=== PATIENT | male | born 1950 | race Caucasian/White ===

== ENCOUNTER 2016-10-28 16:16 | Emergency (ER) | payer OTHER ==
--- NOTE | 2016-10-28 16:21 | UCPHY ---
H & P Patient Type: Established HPI/ROS: HPI CHIEF COMPLAINT: Right eye pain, right eye redness HISTORY OF PRESENT ILLNESS: This patient very pleasant 66-year-old male, presents emergency room with 2 days of right eye redness specifically the lower or part of his conjunctiva he thinks he may have scratched his eye. Denies direct trauma. Denies loss of vision, blurry vision, or significant eye pain. No history of glaucoma. Denies any drainage or crusting. Denies fever, denies leg swelling. States no change in vision. He does not wear contacts. He does use corrective lenses for nearsighted. Past Medical History: ?04Hypertension Past Surgical History: no recent surgical history Social History: Denies daily use of drugs alcohol tobacco products Family History: Noncontributory ROS REVIEW OF SYSTEMS: A comprehensive 10 point review of systems is otherwise negative aside from elements mentioned in the history of present illness. Exam Constitutional triage nursing summary reviewed, vital signs reviewed, awake/ alert. Eyes left eye normal, right eye: Conjunctival injection, anterior chamber normal, globe soft, no anterior flare, posterior eye exam without dilatation is unremarkable, normal light reflex, pupil equal round react to light, extra movements intact, lids everted no foreign body seen, visual acuity checked in normal, no fluorescein uptake. HENT normal inspection, atraumatic, moist mucus membranes, no epistaxis, neck supple/ no meningismus, no raccoon eyes. Respiratory clear to auscultation bilaterally, normal breath sounds, no respiratory distress, no wheezing. Cardiovascular rate normal, regular rhythm, no murmur, no edema, distal pulses normal. Gastrointestinal soft, non-tender, no rebound, no guarding, normal bowel sounds, no distension, no pulsatile mass. Genitourinary no CVA tenderness. Musculoskeletal no midline vertebral tenderness, full range of motion, no calf swelling, no tenderness of extremities, no meningismus, good pulses, neurovascularly intact. Skin pink, warm, & dry, no rash, skin atraumatic. Neurologic awake, alert and oriented x 3, AAOx3, moves all 4 extremities equally, motor intact, sensory intact, CN II-XII intact, normal cerebellar, normal vision, normal speech. Psychiatric normal mood/affect. Heme/Lymph/Immune no lymphadenopathy. Differential Diagnosis: Includes but is not limited to in a particular order conjunctivitis, viral conjunctivitis, bacterial conjunctivitis, conjunctival tear, corneal abrasion, acute angle glaucoma Medical Decision Making: plan for this patient he will have proparacaine drops placed in his eye for comfort, will then need eye exam, will apply fluorescein to the eye to make sure there is not a scratch. Rule out foreign body, lid eversion, visual acuity checked. Re-evaluation: 163: Re-examination at this time patient resting comfortably feels much better after proparacaine drops. No fluorescein uptake there appears to be a conjunctival small abrasion or tear inferior part of the right eye. No traumatic hyphema, no iritis. Patient comfortable going home with Cipro drops. Cool compresses. He understands to follow up with Optho tomorrow. 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 - Family History Significant Family History: No pertinent family hx - Social History Smoking Status: Never smoked Constitutional: Initial Vital Signs Temperature (C) 37.1 C 10/28/16 16:30 Heart Rate 84 10/28/16 16:30 Respiratory Rate 16 10/28/16 16:30 Blood Pressure 173/103 H 10/28/16 16:30 O2 Sat (%) 92 10/28/16 16:30 O2 Delivery Mode Room Air Allergies/Adverse Reactions: codeine [Codeine] Allergy (Unknown, Verified 10/28/16 16:34) Home Medications: Medication Instructions Recorded Diazepam [Valium] 5 mg PO Q6PRN PRN #10 tab 06/08/14 Departure - Departure Disposition: Home, Routine, Self-Care Clinical Impression: Conjunctivitis Qualifiers: Conjunctivitis type: acute Acute conjunctivitis type: unspecified Laterality: right Qualified Code(s): H10.31 - Unspecified acute conjunctivitis, right eye Condition: Good Instructions: Conjunctivitis (ED) Additional Instructions: 1. Use cool compresses on your eye. 2. return to the emergency room urgent care if you have any worsening symptoms questions or concerns 3. I do recommend he follow up with Ophthalmology call their 1st thing in the morning for an appointment. Referrals: Ambrocio Ojeda MD [Primary Care Provider] - As per Instructions Dami Mckeon [Medical Doctor] - As per Instructions - PQRS PQRS Measurement: 134: Depression screening and followup, PRIME MD-PHQ2 (12 years and older) Over the last 2 weeks, how often have you been bothered by any of the following problems? 1. Feeling down, depressed, or hopeless? 2. Little interest or pleasure in doing things? Patient answered no to both 1 and 2 130: Documentation of medications. Reviewed all patient medications, doses, route and frequency. 226: Do you smoke? No. 47: 65 and older: Advanced care planning. Patient designates surrogate decision maker as Spouse 51: 18 years old and older with diagnosis of COPD, spirometry performance. Patient has no history of COPD 52: 18 years old and older with COPD and symptoms of COPD or FEV1<60% predicted prescribed a B Agonist. Spirometry not performed; equipment not available.
[2016-10-28] MEDS ORDERED: PROPARACAINE 0.5% 15 ML OPHT DROP ONE (16:29)
[2016-10-28 16:35] VITALS: BP 173/103; PULSE 84; RESP 16; TEMP 98.8; O2SAT 92
== END 2016-10-28 16:55 | disposition home or self-care (01) ==
LOC: CED 16:16
DX: H10.31 Unspecified acute conjunctivitis, right eye (principal)
CPT/HCPCS: 99214-PO; G0463-PO

== ENCOUNTER 2017-09-16 13:56 | Inpatient (IN) | payer OTHER ==
--- NOTE | 2017-09-16 14:19 | EDPHY ---
HPI/HX/ROS/PE/MDM Narrative: CHIEF COMPLAINT: Vision disturbances HPI: This patient is a 66 y/o male with history of cerebellar stroke complaining of vision disturbances and anxiety. 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 Initially, he had difficulty walking, spinning vertigo, and visual disturbances. These symptoms resolved mostly within eight week, but he has continued to have occasional similar symptoms. These are exacerbated by hypertension. The patient has history of anxiety and hypertension and treats symptoms with Valium. He does not take any other medications. He has history of migraines with scotoma aura, but has not had these symptoms for years. Yesterday, he had three separate instances of noting a backwards C-shaped scotoma in his right field of vision. These symptoms began yesterday after he stood suddenly, striking his left lateral toe. He noted hypertension (165/104) as well and took Valium, which relieved his symptoms after two hours. Today, this remains in his right field of vision, but his symptoms have largely resolved. No diplopia. His symptoms do not change if he closes one eye. He has not noted any balance issues or other neurologic deficits. The patient spoke with his primary care physician, Dr. Ojeda, and also Dr. Chan, neurologist. Dr. Chan recommended presentation to the Emergency Department for MRI w/o contrast to further evaluate symptoms. REVIEW OF SYSTEMS: Aside from elements discussed in the HPI, a comprehensive 10-point review of systems was reviewed and is negative. PMH: Cerebellar stroke. Appendectomy, Splenectomy, Tonsillectomy SOCIAL HISTORY: Friend at bedside. PCP: Dr. Ojeda. Neurologist: Dr. Resendiz. PHYSICAL EXAM: General:Patient is alert, in no acute distress. ENT:Eyes are normal to inspection. ENT inspection normal. Neck: Normal inspection. Full range of motion. Respiratory:No respiratory distress. Breath sounds normal bilaterally. Cardiovascular: Regular rate and rhythm. Strong peripheral pulses. Normal cap refill. Abdomen:The abdomen is nontender to palpation. There are no peritoneal signs. There are normal bowel sounds. Back: Normal to inspection. No tenderness to palpation. Skin: Normal color. No rash. Warm and dry. Extremities: Normal appearance. Full range of motion. Neuro: Oriented x3. Normal motor function. Normal sensory function. no pronator drift. Normal [id number] bilaterally. ED Course: 66 y/o male presents with visual disturbances and anxiety. Patient is neurologically intact. Plan for MRI brain. 15:[address] Law, radiologist. MRI brain shows multiple small infarcts, largest in the left occiput. 15:17 Discussed results with patient. He states he first noted symptoms two days ago. The patient is not a candidate for TPA at this time as symptoms began two days ago so he is out of the therapeutic window for treatment. Plan to consult with neurology, hospitalist service. Plan for echocardiogram, additional laboratory studies. 15:[address] Chan, neurologist. Reviewed MRI images. Plan for CTA head and neck to r/o cardioembolic processes vs recurrent dissection. 15:[address] Woo, hospitalist. She accepts admission. 15:40 Dr. Chan recommends Plavix 75mg. Patient states he has a diagnosis of hereditary spherocytosis. He is s/p splenectomy. 16:04 Spoke with echocardiogram tech. No abnormalities. - Data Points Imaging Results: Imaging Impressions Brain MRI 09/16/17 14:22 Impression: 1. New small acute infarcts in the left occipital lobe, posteromedial left temporal lobe, and right cerebellum, the largest in the posterior left occipital lobe, measuring 10 mm. 2. Mild to moderate underlying white matter change that can be seen with small vessel ischemic change. 3. Sequela from an old infarct, with encephalization, in the right cerebellum. Results called and discussed with Ruy Raines M.D., on September 16, 2017 at 1520. This was also reviewed by Dr. Scott Guajardo who concurs. Chest X-Ray 09/16/17 15:22 Impression: Findings most consistent with airways disease are noted. Head CTA 09/16/17 15:25 Impression: Normal. Neck CTA 09/16/17 15:25 Impression: 1. Dominant left vertebral artery. 2. Otherwise, widely patent anterior and posterior circulation without dissection, atherosclerotic disease, plaque, stenosis, or aneurysm. Imaging: Discussed imaging studies w/ millwork estimator Radiologist Laboratory Results: Laboratory Results 09/16/17 15:30 09/16/17 15:30 09/16/17 09/16/17 09/16/17 15:30 15:30 15:30 WBC 13.24 10^3/uL H 10^3/uL (3.80-9.50) RBC 5.67 10^6/uL 10^6/uL (4.40-6.38) Hgb 18.7 g/dL H g/dL (13.7-17.5) Hct 50.5 % % (40.0-51.0) MCV 89.1 fL fL (81.5-99.8) MCH 33.0 pg pg (27.9-34.1) MCHC 37.0 g/dL H g/dL (32.4-36.7) RDW 12.5 % % (11.5-15.2) Plt Count 313 10^3/uL 10^3/uL (150-400) MPV 11.5 fL fL (8.7-11.7) Neut % (Auto) 41.9 % % (39.3-74.2) Lymph % (Auto) 44.0 % % (15.0-45.0) Chambers % (Auto) 10.9 % % (4.5-13.0) Eos % (Auto) 1.3 % % (0.6-7.6) Baso % (Auto) 1.4 % % (0.3-1.7) Nucleat RBC Rel Count 0.0 % % (0.0-0.2) Absolute Neuts (auto) 5.54 10^3/uL 10^3/uL (1.70-6.50) Absolute Lymphs (auto) 5.83 10^3/uL H 10^3/uL (1.00-3.00) Absolute Monos (auto) 1.44 10^3/uL H 10^3/uL (0.30-0.80) Absolute Eos (auto) 0.17 10^3/uL 10^3/uL (0.03-0.40) Absolute Basos (auto) 0.19 10^3/uL H 10^3/uL (0.02-0.10) Absolute Nucleated RBC 0.00 10^3/uL 10^3/uL (0-0.01) Immature Gran % 0.5 % % (0.0-1.1) Immature Gran # 0.07 10^3/uL 10^3/uL (0.00-0.10) PT 13.9 SEC SEC (12.0-15.0) INR 1.05 (0.83-1.16) APTT 24.6 SEC SEC (23.0-38.0) Sodium 141 mEq/L mEq/L (135-145) Potassium 4.2 mEq/L mEq/L (3.5-5.2) Chloride 106 mEq/L mEq/L (97-110) Carbon Dioxide 18 mEq/l L mEq/l (22-31) Anion Gap 17 mEq/L H mEq/L (8-16) BUN 8 mg/dL mg/dL (7-23) Creatinine 0.8 mg/dL mg/dL (0.7-1.3) Estimated GFR > 60 Glucose 84 mg/dL mg/dL (70-100) Calcium 10.2 mg/dL mg/dL (8.5-10.4) Troponin I < 0.012 ng/mL ng/mL (0.000-0.034) Medications Given: Clopidogrel Bisulfate (Plavix) 75 mg PO DAILY MORGAN Stop: 03/15/18 15:44 Last Admin: 09/16/17 16:10 Dose: 75 mg General Time Seen by Provider: 09/16/17 14:11 Initial Vital Signs: Initial Vital Signs Temperature (C) 36.9 C 09/16/17 14:02 Heart Rate 89 09/16/17 14:02 Respiratory Rate 16 09/16/17 14:02 Blood Pressure 161/100 H 09/16/17 14:02 O2 Sat (%) 93 09/16/17 14:02 O2 Delivery Mode Room Air Allergies/Adverse Reactions: codeine [Codeine] Allergy (Unknown, Verified 10/28/16 16:34) Home Medications: Medication Instructions Recorded Diazepam [Valium 5 MG (*)] 5 mg PO DAILY 09/16/17 Departure - Departure Disposition: [facility] Inpatient Acute Clinical Impression: CVA (cerebral vascular accident) Qualifiers: CVA mechanism: other Qualified Code(s): I63.8 - Other cerebral infarction Condition: Fair Report Scribed for: Ruy Raines Report Scribed by: France Beltran Date of Report: 09/16/17 Time of Report: 14:19 Physician Review and Approval Statement: Portions of this note were transcribed by an ED scribe. I personally performed the history, physical exam, and medical decision making; and confirm the accuracy of the information in the transcribed note.
[2017-09-16 15:38] LABS: PLATELET COUNT 313 10^3/uL (150-400)
--- NOTE | 2017-09-16 15:43 | CPEKG ---
Heart Rate: 86 RR Interval: 698 P-R Interval: 160 QRSD Interval: 90 QT Interval: 380 QTC Interval: 455 P [place]: 37 QRS [place]: -36 T Wave [place]: 19 EKG Severity - OTHERWISE NORMAL ECG - EKG Impression: SINUS RHYTHM EKG Impression: LEFT AXIS DEVIATION Electronically Signed By: Greyson Craig 19-Sep-2017 12:48:07
[2017-09-16 15:49] LABS: INR 1.05 (0.83-1.16); PROTIME(PATIENT) 13.9 SEC (12.0-15.0)
[2017-09-16] MEDS ORDERED: CLOPIDOGREL BISULFATE 75 MG TAB ONE (16:08)
[2017-09-16] MEDS: CLOPIDOGREL BISULFATE 75 MG TAB PO SCH (16:10)
[2017-09-16] MEDS ORDERED: ACETAMINOPHEN 325 MG TAB PO PRN (16:24)
[2017-09-16] MEDS ORDERED: IOPAMIDOL (ISOVUE 370) 100 ML BTL IV ONE (16:24)
[2017-09-16] MEDS ORDERED: ONDANSETRON DISINTEGRATING 4 MG TAB PO PRN (16:24)
[2017-09-16] MEDS ORDERED: ONDANSETRON 4 MG/2 ML VIAL IVP PRN (16:24)
[2017-09-16] MEDS ORDERED: LABETALOL HCL 5 MG/ML 20 ML MDV IVP PRN (16:24)
--- NOTE | 2017-09-16 16:43 | GCON ---
[f rep st] CONSULTATION NEUROLOGY CONSULTATION BILLING INFORMATION: 70 total minutes on the floor, reviewing the patient's previous medical history, neurologic history, and current imaging. CHIEF COMPLAINT: Visual changes. 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 He has a history of a stroke in 2007 in the right cerebellum, thought to be due to a traumatic cervical vessel dissection. He has been on 81 mg of aspirin from that time. Then on Saturday, he hit his toe and had some pain and then felt unwell with sudden noticing that he had a visual field cut on the right that resolved but then is still noticeable, perhaps bilaterally now with what he describes as a scotoma. He called our office and we referred him to the emergency department. MRI shows new small acute infarct in the left occipital lobe, posterior medial left temporal lobe, right cerebellum, and left occipital lobe. These are all small bilateral infarcts in the posterior circulation. He has no history of recurrent neck pain or neck trauma. He has no history of atrial fibrillation or cardiac disease that he knows of. REVIEW OF SYSTEMS: Only pertinent to the HPI. PAST MEDICAL HISTORY: Traumatic dissection, presumably in 2007, treated in [place]. SOCIAL HISTORY: Works here at [employer]. FAMILY HISTORY: He has a history of family members with hereditary spherocytosis, which he has as well. PHYSICAL EXAM: VITAL SIGNS: Blood pressure 161/100, temperature 36.9, O2 saturations 93%. GENERAL: Patient is awake and alert and lucid. No language dysfunction on mental function exam. CRANIAL NERVE: I could not detect a visual field cut with gross confrontational testing, but he describes a right mild visual field cut. Otherwise, cranial nerve exam is negative. Motor exam is normal. Sensory exam is normal. IMPRESSION AND PLAN: 1. Acute Strokes 2. History of previous right cerebellar infarct in 2007, reported to be from cervical vessel dissection (traumatic) 3. Hereditary spherocytosis The patient's imaging reveals multiple, small, acute infarcts bilaterally in the posterior circulation, maximal on the left. He has had no repeat neck trauma or pain with this event. He has no history of cardiac disease that he knows of. No history of cardiac dysrhythmia. He does have hereditary spherocytosis. I recommend we switch him from aspirin to 75 mg of Plavix daily. We discussed potential risks, benefits, and alternatives of this medication. We will perform CTAs of the head and neck in the emergency department, along with echocardiography. He will be admitted with telemetry to screen for paroxysmal atrial fibrillation and have a hematology consult regarding his underlying blood dyscrasia. We will follow up on the above testing and his clinical course. Thank you for this consultation. /[id number]/MODL MTDD
--- NOTE | 2017-09-16 16:53 | PDGENHP ---
History and Physical - Chief Complaint vision changes - History of Present Illness 66 yo male with h/o hypertensin, migraine with scotoma aura and prior cerebellar CVA in setting of traumatic vertebral dissection presents to ED with vision changes. Two days prior to arrival, he stubbed his toe and suddenly had a loss of his right visual field. This lasted about 2 hours. No other focal weakness or headache. No problems with speech. He didn't seek medical attention, but went to bed. The following day, he continued to have visual field deficits. He thought the symptoms improved a little, but he continued to have visual disturbance and presented to ED today for evaluation. He was last normal >2 days ago. History Information - Allergies/Home Medication List Allergies/Adverse Reactions: codeine [Codeine] Allergy (Unknown, Verified 10/28/16 16:34) Home Medications: Diazepam [Valium 5 MG (*)] 5 mg PO DAILY 09/16/17 [Last Taken Unknown] I have personally reviewed and updated: family history, medical history, social history, surgical history - Past Medical History CVA, hypertension Additional medical history: hereditary spherocytosis. anxiety - Surgical History Additional surgical history: splenectomy, appendectomey, tonsillectomy - Family History Positive for: stroke Additional family history: hereditary spherocytosis. mom had an aneurysm - Social History Smoking Status: Never smoked Alcohol Use: Rarely Drug Use: None Additional social history: Lives independently with partner. Works as IR nurse here at [employer] Review of Systems Review of Systems: ROS: 10pt was reviewed & negative except for what was stated in HPI & below Physical Exam Physical Exam: Temp Pulse Resp BP Pulse Ox 36.9 C 80 16 161/97 H 96 09/16/17 14:02 09/16/17 16:31 09/16/17 16:31 09/16/17 16:31 09/16/17 16:31 Constitutional: no apparent distress Eyes: PERRL Ears, Nose, Mouth, Throat: moist mucous membranes Cardiovascular: regular rate and rhythym, no murmur, rub, or gallop Respiratory: no respiratory distress, clear to auscultation Gastrointestinal: normoactive bowel sounds, soft, non-tender abdomen Skin: warm Musculoskeletal: full muscle strength Neurologic: AAOx3, other (peripheral vision intact, no focal weakness, no aphasia) Psychiatric: interacting appropriately Lab Data & Imaging Review 09/16/17 15:30 09/16/17 15:30 WBC 13.24 10^3/uL (3.80-9.50) H 09/16/17 15:30 RBC 5.67 10^6/uL (4.40-6.38) 09/16/17 15:30 Hgb 18.7 g/dL (13.7-17.5) H 09/16/17 15:30 Hct 50.5 % (40.0-51.0) 09/16/17 15:30 MCV 89.1 fL (81.5-99.8) 09/16/17 15:30 MCH 33.0 pg (27.9-34.1) 09/16/17 15:30 MCHC 37.0 g/dL (32.4-36.7) H 09/16/17 15:30 RDW 12.5 % (11.5-15.2) 09/16/17 15:30 Plt Count 313 10^3/uL (150-400) 09/16/17 15:30 MPV 11.5 fL (8.7-11.7) 09/16/17 15:30 Neut % (Auto) 41.9 % (39.3-74.2) 09/16/17 15:30 Lymph % (Auto) 44.0 % (15.0-45.0) 09/16/17 15:30 [place] % (Auto) 10.9 % (4.5-13.0) 09/16/17 15:30 Eos % (Auto) 1.3 % (0.6-7.6) 09/16/17 15:30 Baso % (Auto) 1.4 % (0.3-1.7) 09/16/17 15:30 Nucleat RBC Rel Count 0.0 % (0.0-0.2) 09/16/17 15:30 Absolute Neuts (auto) 5.54 10^3/uL (1.70-6.50) 09/16/17 15:30 Absolute Lymphs (auto) 5.83 10^3/uL (1.00-3.00) H 09/16/17 15:30 Absolute Monos (auto) 1.44 10^3/uL (0.30-0.80) H 09/16/17 15:30 Absolute Eos (auto) 0.17 10^3/uL (0.03-0.40) 09/16/17 15:30 Absolute Basos (auto) 0.19 10^3/uL (0.02-0.10) H 09/16/17 15:30 Absolute Nucleated RBC 0.00 10^3/uL (0-0.01) 09/16/17 15:30 Immature Gran % 0.5 % (0.0-1.1) 09/16/17 15:30 Immature Gran # 0.07 10^3/uL (0.00-0.10) 09/16/17 15:30 PT 13.9 SEC (12.0-15.0) 09/16/17 15:30 INR 1.05 (0.83-1.16) 09/16/17 15:30 APTT 24.6 SEC (23.0-38.0) 09/16/17 15:30 Sodium 141 mEq/L (135-145) 09/16/17 15:30 Potassium 4.2 mEq/L (3.5-5.2) 09/16/17 15:30 Chloride 106 mEq/L (97-110) 09/16/17 15:30 Carbon Dioxide 18 mEq/l (22-31) L 09/16/17 15:30 Anion Gap 17 mEq/L (8-16) H 09/16/17 15:30 BUN 8 mg/dL (7-23) 09/16/17 15:30 Creatinine 0.8 mg/dL (0.7-1.3) 09/16/17 15:30 Estimated GFR > 60 09/16/17 15:30 Glucose 84 mg/dL (70-100) 09/16/17 15:30 Calcium 10.2 mg/dL (8.5-10.4) 09/16/17 15:30 Troponin I < 0.012 ng/mL (0.000-0.034) 09/16/17 15:30 Visualized and Interpreted EKG results: Yes EKG Interpretation: Positive for: normal sinsus rhythm Assessment & Plan Assessment: Acute ischemic stroke - Multiple small strokes suggestive of embolic origin. Pt previously on ASA, but not consistently. Discussed with Neurology, who will consult. -admit to neuro floor on telemetry, EKG shows NSR -CTA head and neck pending -echo with bubble -change to Plavix -permissive hypertension for now, PRN Labetalol -resume home meds likely tomorrow since symptoms started 2 days ago Hereditary spherocytosis - s/p splenectomy. I am not aware of an association with this diagnosis and CVA. I have not contacted robinson urbano though query if this would change threshold for anti-coagulation. -recommend hematology consult in AM. Hypertension - as above, permissive htn for now Anxiety - cont prn Valium DVT PPLX - Lovenox Full code Dispo - inpt, anticipate >48 hrs hospitalization for ongoing management and workup of acute ischemic stroke
--- NOTE | 2017-09-16 18:16 | ECHO ---
[email or web address] [address] Main: [phone] Fax: Transthoracic Echocardiogram Name: CHACHO BOLES MR#: [id number] Study Date: 09/16/2017 Study Time: 03:58 PM Date of : 1950 Age: 66 year(s) Height: 182.9 cm (72 in.) Weight: 112.49 kg (248 lb.) BSA: 2.33 m2 Gender: Male Examination: Echo with Agitated Saline Indication: Multifocal TIA, Visual distubances, Eval for Embolic Source Image Quality: Contrast: Requested by: Ruy Raines BP: 170 mmHg/101 mmHg Heart Rate: Rhythm: Normal sinus rhythm Indication: Multifocal TIA, Visual distubances, Eval for Embolic Source Procedure Staff Medical Transcription: Marco Antonio Wang [facility] Reading Physician: Mary Barrett Requesting Provider: Ruy Raines Conclusions: Normal size left ventricle. Borderline concentric LV hypertrophy. Normal global systolic LV function. The ejection fraction is visually estimated to be 72 %. No regional wall motion abnormality. Normal size right ventricle. Normal RV function. An agitated saline study was performed and was negative for intracardiac shunting. The aortic valve is tri-leaflet. There is no aortic valve regurgitation. Complete Doppler interrogation was not performed to assess . There is no previous echocardiogram for comparison. Measurements: Chambers Valvular Assessment AV/MV Valvular Assessment TV/PV Normal Normal Normal Name Value Range Name Value Range Name Value Range IVSd (2D): 1.0 cm (0.6 cm-1.1 AV Vmax: 1.03 m/s (1 m/s-1.7 PV Vmax: 0.73 m/s (0.6 m/s-0.9 cm) m/s) m/s) LVDd (2D): 4.6 cm (4.2 cm-5.9 AV maxP mmHg ( - ) PV PGmax: 2 mmHg ( - ) cm) LVOT Vmax: 0.67 m/s (0.7 m/s-1.1 LVDs (2D): 2.7 cm (2.1 cm-4 m/s) cm) MV E Vmax: 0.41 m/s ( - ) LVPWd (2D): 1.2 cm (0.6 cm-1 MV A Vmax: 0.55 m/s ( - ) cm) MV E/A: 0.75 ( - ) Visual EF: 72 % Continued Measurements: Chambers Valvular Assessment AV/MV Patient: CHACHO BOLES Study Date: 09/16/2017 Page 1 of 2 03:58 PM Name Value Name Value LADs Lon.0 cm MV E/E' Septal: 7.90 LA Area: 15.1 cm2 MV E/E' Lateral: 5.10 Findings: Left Ventricle: Normal size left ventricle. Borderline concentric LV hypertrophy. Normal global systolic LV function. The ejection fraction is visually estimated to be 72 %. No regional wall motion abnormality. Grade 1 diastolic dysfunction (abnormal relaxation). Right Ventricle: Normal size right ventricle. Normal RV function. Left Atrium: The left atrium is normal in size. An agitated saline study was performed and was negative for intracardiac shunting. Right Atrium: The right atrium is normal in size. Mitral Valve: The mitral valve is normal in appearance and function. No mitral valve calcification is noted. There is no mitral valve regurgitation. Aortic Valve: The aortic valve is tri-leaflet. There is no aortic valve regurgitation. Complete Doppler interrogation was not performed to assess . Tricuspid Valve: The tricuspid valve is normal in appearance and function. There is no tricuspid valve regurgitation. Pulmonic Valve: The pulmonic valve is normal in appearance and function. Aorta: The aorta is normal. Pericardium: No pericardial effusion. (No Signature Object) Patient: CHACHO BOLES Study Date: 09/16/2017 Page 2 of 2 03:58 PM [id number]
[2017-09-16] MEDS: DIAZEPAM 5 MG TAB PO PRN (22:10)
[2017-09-17 05:47] LABS: PLATELET COUNT 263 10^3/uL (150-400)
[2017-09-17] MEDS: ENOXAPARIN 40 MG/0.4 ML SYR SC SCH (08:14)
[2017-09-17] MEDS: CLOPIDOGREL BISULFATE 75 MG TAB PO SCH (08:14)
[2017-09-17] MEDS ORDERED: CLOPIDOGREL BISULFATE 75 MG TAB PO SCH (09:00)
--- NOTE | 2017-09-17 10:30 | NEUROPROG ---
Assessment: 1. Multiple, small acute infarcts in the posterior circulation bilaterally, maximal left 2. Hereditary spherocytosis 3. 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 Surface echo was unremarkable. We will proceed with a MANNIE and implant a length monitor. I appreciate Cardiology help with this patient. I did perform a literature search and found some case reports of ischemic stroke and hereditary spherocytosis. We will consult Hematology to to review and make any recommendations as indicated. He will have outpatient followup with Ophthalmology for a digital visual field examination, Dr. Resendiz (his primary neurologist). Ultimately, I have asked him to obtain his records from [place] to review with Dr. Resendiz as an outpatient once discharged. He is agreeable with the plan. 35 total minutes floor time; reviewing interim history, testing, direct counseling the patient and coordination of care. Subjective: No new symptoms Objective: Vital Signs Temp Pulse Resp BP Pulse Ox 36.8 C 79 13 127/89 H 94 09/17/17 08:00 09/17/17 08:00 09/17/17 08:00 09/17/17 08:00 09/17/17 08:00 Laboratory Results 09/17/17 05:33 09/17/17 05:33 09/16/17 09/17/17 09/18/17 05:59 05:59 05:59 Intake Total 290 Balance 290 PT 13.9 SEC (12.0-15.0) 09/16/17 15:30 INR 1.05 (0.83-1.16) 09/16/17 15:30 Patient reports scotoma in right visual field. On confrontational exam, no objective deficit. Allergies/Adverse Reactions: codeine [Codeine] Allergy (Unknown, Verified 10/28/16 16:34)
--- NOTE | 2017-09-17 10:38 | PDMN ---
Medical Necessity Medical necessity: Patient meets inpatient criteria per physician note and [facility] -83 Stroke: Ischemic (new visual changes: MRI shows acute ischemic small infarcts, suggestive of embolic origin; history HTN and R cerebellar stroke due to traumatic cervical vessel dissection, has been taking ASA; anticipated LOS > 2 midnights for hematology consult, ongoing management and treatment of acute stroke.)
--- NOTE | 2017-09-17 14:40 | GCON ---
[f rep st] CONSULTATION CARDIOLOGY CONSULT DATE OF CONSULTATION: 09/17/2017 CHIEF COMPLAINT: Stroke. HISTORY OF PRESENTING ILLNESS: We were asked by Dr. Chan to visit with this patient. 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 He walters s a history of intermittent hypertension, dyslipidemia, past CVA thought to be related to history of cervical artery trauma, history of migraine headache, and hereditary spherocytosis. He was in his usual state of reasonable health up until this past Saturday. He stubbed his toe very hard and had a sudden visual field cut in the right eye. This got better over the next couple of day s, but because he still had a mild persistent visual change, described as a "floater", he presented t o the ER yesterday. Brain imaging demonstrated new small infarcts in the left occipital lobe, ore washer ior medial left temporal lobe, and right cerebellum. He was outside of the tPA window. He was admit dhruv to Internal Medicine and seen by Dr. Chan of Neurology. Head and neck CT angiogram did not reveal any atherosclerotic disease or any other vascular abnormalities. Today, he reports feeling quite stressed. His visual field defect has mostly resolved and again, he describes a mild floater in that right eye. He denies any history of sustained arrhythmia, but occas ionally does have brief palpitations that have been documented as PACs. He does not have a history o f angina, dyspnea, syncope, or symptoms suggestive of heart failure. He walks for exercise. REVIEW OF SYSTEMS: A full 10-point review of systems is performed and is negative except that which is outlined in History of Present Illness. ALLERGIES: Codeine. PAST MEDICAL HISTORY: 1. Stroke as detailed above with history of traumatic cerebellar stroke in 2007. 2. Intermittent hypertension, currently not on medical therapy. 3. Dyslipidemia, primarily elevated triglycerides. 4. History of migraine headaches. 5. Anxiety. 6. Hereditary spherocytosis. SURGICAL HISTORY: Splenectomy, appendectomy, and tonsillectomy. OUTPATIENT MEDICATIONS: He does take some Welsh herbs. Otherwise, he takes Valium 5 mg as needed for anxiety. 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 He does not smoke cigarettes, d rink alcohol, or use illicit drugs. FAMILY HISTORY: Notable for hereditary spherocytosis and mother had some sort of aneurysm. There is also a family history of stroke. PHYSICAL EXAM: VITAL SIGNS: Blood pressure 130/97, heart rate 81, oxygen saturation 95% on 3 L nasa l cannula. He is afebrile. GENERAL: Well-appearing older male in no acute distress. HEENT: Scler ae are clear and free of jaundice. Mucous membranes are moist. Normocephalic, atraumatic. CARDIOVA SCULAR: JVP less than 10. Carotids equal and 2+ bilaterally without bruit. Regular rate and rhythm without murmur, rub, or gallop. LUNGS: Clear to auscultation bilaterally without wheezes, rhonchi, or rales. ABDOMEN: Soft, nontender, nondistended without bruits, masses, or hepatosplenomegaly. E XTREMITIES: Warm and well perfused without cyanosis, clubbing, or edema. NEURO: Alert and oriented x3 without gross focal neurological deficits. Appropriate mood and affect. LABORATORY DATA: White count 10.86, hematocrit 45.9, platelets 263. INR is normal. Sodium 140, pot assium 4.1, chloride 106, bicarb 22, BUN 15, creatinine 1.0. Troponin negative x2. Triglycerides 52 1, total cholesterol 173, LDL cannot be calculated because triglycerides are too high. His non HDL c holesterol is 148. HDL is 25. DIAGNOSTIC STUDIES: EKG reviewed by me: Normal sinus rhythm, left axis deviation. No ischemic sandhu ges. Echocardiogram reviewed by me: Normal LV size and systolic function. Borderline concentric LVH. No rmal wall motion. Negative bubble study. No significant valvular disease. Brain MRI and head and neck CTA as detailed in the history of present illness. ASSESSMENT AND PLAN: A 66-year-old male admitted with a stroke and found to have embolic appearance in the posterior circulation on brain MRI. This is concerning for cardioembolic source. He also has cardiovascular risk factors of age, intermittent hypertension, and dyslipidemia. 1. Cryptogenic stroke: I discussed the case with Dr. Hernandez Chan. I have explained to the patient t he rationale behind a transesophageal echocardiogram and LINQ recorder. The risks, benefits, alterna tives were reviewed and he agrees to proceed. He is currently on Plavix. He was previously on aspir in intermittently. At this point, his blood pressure is fairly well controlled off medications, but we will need to follow this as an outpatient as I think he will be a candidate for antihypertensive t herapy down the line. Also, I have recommended statin therapy to reduce cardiovascular risk in the s etting of his unfavorable lipid profile and other risk factors. I will also check a hemoglobin A1c t o further evaluate cardiovascular risk. 2. Dyslipidemia: Dietary strategies to reduce triglycerides were reviewed. I will initiate statin therapy as well. 3. Intermittent hypertension as an outpatient: Currently normotensive. This will need to be follow ed closely. 4. History of hereditary spherocytosis. Hematology consult is pending, as there apparently is a tyson k between hereditary spherocytosis and stroke. Thank you for allowing us to participate in this patient's care. We will follow with you. /[id number]/MODL
[2017-09-17] MEDS ORDERED: MIDAZOLAM 2 MG/2 ML VIAL IVP ONE (15:29)
[2017-09-17] MEDS ORDERED: fentaNYL 100 MCG/2 ML INJ IVP ONE (15:29)
[2017-09-17] MEDS ORDERED: BENZOCAINE UNIT DOSE SPRAY HURRICAINE MM ONE (15:29)
[2017-09-17] MEDS ORDERED: NS 500 ML IV ONE (15:29)
--- NOTE | 2017-09-17 15:30 | GCON ---
[f rep st] CONSULTATION HEMATOLOGY CONSULTATION. REFERRING PHYSICIAN: Susan Woo MD REASON FOR CONSULTATION: History of hereditary spherocytosis. HISTORY OF PRESENT ILLNESS: Mr. Garza is a 66-year-old gentleman who was admitted with right visual field loss that appears to be due to thromboembolism. He has a remote history of a right cerebellar infarct 2007 after a possible traumatic cervical artery dissection. He has been admitted to the hospital, and is undergoing evaluation without a clear etiology of the strokes. He is currently started on Plavix. The patient reports he was diagnosed as a child in 1972 with hereditary spherocytosis. His father and paternal grandmother have had the disease, although while they had some jaundice, they never needed any other therapy. The patient reports that he would have significant hemolytic crises, especially after activities and eventually ended up having a splenectomy about that time. Since then, he has not had any further problems, particularly no problems with severe anemias, hemolytic crises, or gallstones. He is taking folic acid every day. He still has some of the visual field loss, but has no other acute complaints at this time. ALLERGIES: He is allergic to codeine. HOME MEDICATIONS: Included intermittent aspirin and occasional diazepam. CHRONIC ILLNESSES: 1. Hereditary spherocytosis. 2. Cerebellar stroke 2007 after traumatic cervical artery dissection when he fell on the ice. SURGICAL HISTORY: 1. Splenectomy. 2. Appendectomy. 3. Tonsillectomy. FAMILY HISTORY: Positive for hereditary spherocytosis in his father. His mother was [place] and she of a stroke. No history of hematological disorders on her side of the family. 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 He is , but has no children. He drinks alcohol occasionally. Never smoked. REVIEW OF SYSTEMS: 10-point review of systems performed. Pertinent positives per HPI, otherwise negative. PHYSICAL EXAM: VITAL SIGNS: Temperature is 36.9, pulse 81, blood pressure is 130/97. GENERAL: He is a well-appearing gentleman, no distress. HEENT: Sclerae are nonicteric. Oral mucosa is unremarkable. Extraocular muscles are intact. YOHANNES EXAM: Reveals no peripheral lymphadenopathy. LUNGS: Clear. CARDIAC: Regular. ABDOMEN: Soft, nontender, without hepatomegaly. NEUROLOGICAL: He has decreased vision in the right eye, but no focal findings. LABS: On arrival: White count is elevated at 13,000, hemoglobin is high at 18.7 g/dL, hematocrit 50%, platelet count 313,000. Differential on the white count showed normal neutrophils. Lymphocytes were increased at 5800, monocytes 1400, basophils about 200. Eosinophils were normal. Coags were normal. Chemistries were unremarkable. Calcium 10.2; LFTs were not done. Brain MRI showed new small acute infarcts in the left occipital lobe, posterior medial left temporal lobe and right cerebellum, mild to moderate underlying white matter changes and sequelae from old infarct in the right cerebellum. Chest x-ray really unremarkable. CT angiogram of the head was unremarkable. CT angiogram of the neck showed a dominant left vertebral artery, otherwise widely patent anterior and posterior circulation without dissection, atherosclerotic disease, plaque, stenosis or aneurysm. IMPRESSION: 1. Hereditary spherocytosis status post splenectomy. 2. Elevated hemoglobin and white blood count. 3. Recent recurrent strokes. MEDICAL DECISION MAKING: Although there may be some reports of increased thromboembolic disorders in patients with hereditary spherocytosis, most patients do well. There are not any recommendations outside of clinically directed regarding risk reduction. Since he is having strokes, I agree with plavix. Patients who are post splenectomy are at increased risk of clots, both acutely and perhaps longstanding. The other possibility is he does have an elevated white count and hemoglobin. This most likely is related to post splenectomy, but an underlying myeloproliferative disorder cannot be entirely ruled out. I recommend sending a JAK2 mutation because if that is positive, then we would start a workup and treatment program for possible polycythemia. I will check some other labs and recommend he continue taking folic acid. The JAK2 will take several days to return, so if he is discharged in the next day or two, he may follow up with me in the clinic to review the results. I appreciate seeing him in consultation. /[id number]/MODL MTDD
--- NOTE | 2017-09-17 16:12 | ASMTCMCOM ---
CM Note CM Note Notes: Pt in for cva, is awaiting MANNIE this afternoon. Pt still has visual deficit at this time, plans to follow up w opthalmologist. OT/PT/WATCH CASER clear pt for home w partner assist. Anticipate pt will d/c when medically stable. No CM d/c needs identified at this time. CM available for changes/needs. Date Signed: 09/17/2017 04:11 PM Electronically Signed By:KACEY Shanks
[2017-09-17] MEDS ORDERED: PROPOFOL 200 MG/20 ML VIAL ONE ×2 (16:24)
[2017-09-17] MEDS ORDERED: LIDOCAINE 1% 300 MG/30 ML SDV SC ONE (16:33)
[2017-09-17] MEDS ORDERED: LIDOCAINE 1% 300 MG/30 ML SDV ONE (16:36)
[2017-09-17] MEDS ORDERED: NALOXONE HCL 0.4 MG/ML INJ IVP PRN (16:41)
--- NOTE | 2017-09-17 16:42 | PDANEPAE ---
ANE History of Present Illness MANNIE ANE Past Medical History - Cardiovascular History Hx Hypertension: No Hx Arrhythmias: No Hx Chest Pain: No Hx Coronary Artery / Peripheral Vascular Disease: No Hx CHF / Valvular Disease: No Hx Palpitations: Yes - Pulmonary History Hx Oxygen in Use at Home: No Hx Sleep Apnea: No - Endocrine History Hx Diabetes: No ANE Review of Systems Review of systems is: negative Review of Systems: - Exercise capacity Exercise capacity: >=4 METS ANE Patient History - Allergies Allergies/Adverse Reactions: codeine [Codeine] Allergy (Unknown, Verified 10/28/16 16:34) - Home Medications Home Medications: Diazepam [Valium 5 MG (*)] 5 mg PO DAILY 09/16/17 [Last Taken Unknown] - Smoking Hx Smoking Status: Never smoked - Alcohol Use Alcohol Use: Rarely ANE Labs/Vital Signs - Labs Result Diagrams: 09/17/17 05:33 09/17/17 05:33 - Vital Signs Blood Pressure: 145/96 Heart Rate: 87 Respiratory Rate: 16 O2 Sat (%): 92 Height: 182.88 cm Weight: 103.419 kg ANE Physical Exam - Airway Neck exam: FROM Mallampati Score: Class 2 Mouth exam: normal dental/mouth exam - Pulmonary Pulmonary: clear to auscultation - Cardiovascular Cardiovascular: regular rate and rhythym - ASA Status ASA Status: II ANE Anesthesia Plan Anesthesia Plan: GA with mask
--- NOTE | 2017-09-17 16:47 | PDHPUP ---
History & Physical Update H&P update statement: This history and physical update is based on an assessment of the patient which was completed after admission or registration (within 24 hours), but prior to the surgery/procedure. H&P update: H&P reviewed & patient examined, no change in patient's condition since H&P completed
--- NOTE | 2017-09-17 17:38 | POSTANESTH ---
Post Anesthetic Evaluation Cardiovascular Status: Normal, Stable Respiratory Status: Normal, Stable Level of Consciousness/Mental Status: Mildly Sleepy, Arousable Pain Control: Adequate, Prn Tx Ordered Nausea/Vomiting Control: Adequate, Prn Tx Ordered
--- NOTE | 2017-09-17 18:28 | HOSPPROG ---
Hospitalist Progress Note Assessment/Plan: #Acute posterior circulation strokes -echo negative, so Dr Barrett to perform MANNIE to eval for thrombus. LINQ to be placed -literature search showed thromboembolic disease related to hereditary spherocytosis or splenectomy -also elevated WBC/Hb could be indicative of myelodysplastic syndrome; JAK2 pending -Dr Ortega evaluated and agrees with Plavix. Normotensive here #Hereditary spherocytosis -s/p splenectomy. Cont folic acid #h/o cerebellar CVA: traumatic with cervical artery dissection after fall on ice #HLD: statin #Diet: regular #DVT ppx: Lovenox #Disp: warrants inpatient admission for CVA evaluation including MANNIE, telemetry Subjective: very anxious. visual field blurred in both eyes Objective: Vital Signs Temp Pulse Resp BP Pulse Ox 36.9 C 87 16 145/96 H 92 09/17/17 15:35 09/17/17 16:42 09/17/17 16:42 09/17/17 16:42 09/17/17 16:42 Laboratory Results 09/17/17 05:33 09/17/17 05:33 09/16/17 09/17/17 09/18/17 05:59 05:59 05:59 Intake Total 290 Balance 290 PT 13.9 SEC (12.0-15.0) 09/16/17 15:30 INR 1.05 (0.83-1.16) 09/16/17 15:30 - Physical Exam Constitutional: other (tearful) Eyes: PERRL Ears, Nose, Mouth, Throat: moist mucous membranes, hearing normal Cardiovascular: regular rate and rhythym, no murmur, rub, or gallop Respiratory: no respiratory distress, no rales or rhonchi Gastrointestinal: normoactive bowel sounds Skin: warm Musculoskeletal: full muscle strength Neurologic: AAOx3, CN II-XII Intact Psychiatric: anxious, other (pressured-speech) ICD10 Worksheet Patient Problems: Problems Problem Status Onset CVA (cerebral vascular accident) Acute H/O splenectomy Chronic Spherocytosis, hereditary Chronic
[2017-09-17] MEDS: DIAZEPAM 5 MG TAB PO PRN (22:00)
[2017-09-18 05:28] LABS: PLATELET COUNT 265 10^3/uL (150-400)
--- NOTE | 2017-09-18 08:50 | HOSPPROG ---
Hospitalist Progress Note Assessment/Plan: #Acute posterior circulation strokes - suspect cardioembolic. -echo negative, MANNIE pending -plan for LINQ prior to dc to continue to search for a fib -note increased stroke risk with hereditary spherocytosis, per heme, not indication for anticoagulation, cont plavix -elevated WBC/Hb could be indicative of myelodysplastic syndrome; JAK2 pending -normotensive #Hereditary spherocytosis -s/p splenectomy. Cont folic acid #h/o cerebellar CVA: traumatic with cervical artery dissection after fall on ice #HLD: statin #Diet: regular #DVT ppx: Lovenox #Disp: warrants inpatient admission for CVA evaluation including MANNIE, telemetry Objective: Vital Signs Temp Pulse Resp BP Pulse Ox 36.8 C 79 15 148/84 H 94 09/18/17 07:43 09/18/17 07:43 09/18/17 07:43 09/18/17 07:43 09/18/17 07:43 Laboratory Results 09/18/17 04:38 09/17/17 05:33 09/17/17 09/18/17 09/19/17 05:59 05:59 05:59 Intake Total 290 200 Balance 290 200 PT 13.9 SEC (12.0-15.0) 09/16/17 15:30 INR 1.05 (0.83-1.16) 09/16/17 15:30 ICD10 Worksheet Patient Problems: Problems Problem Status Onset CVA (cerebral vascular accident) Acute H/O splenectomy Chronic Spherocytosis, hereditary Chronic
[2017-09-18] MEDS ORDERED: FOLIC ACID 1 MG TAB PO SCH (09:00)
[2017-09-18] MEDS ORDERED: ATORVASTATIN CALCIUM 20 MG TAB PO SCH (09:00)
[2017-09-18] MEDS ORDERED: CLOPIDOGREL BISULFATE 75 MG TAB PO SCH (09:00)
[2017-09-18] MEDS: ENOXAPARIN 40 MG/0.4 ML SYR SC SCH (09:26)
--- NOTE | 2017-09-18 11:06 | ECHO ---
[email or web address] [address] [address] Main: [phone] Fax: Transesophageal Echocardiography Name: CHACHO BOLES MR#: [id number] Study Date: 09/17/2017 Study Time: 05:12 PM Date of : 1950 Age: 66 year(s) Height: ( ) Weight: ( ) BSA: Gender: Male Examination: MANNIE Indication: Eval for Embolic Source Image Quality: Contrast: Requested by: Susan Woo Heart Rate: Rhythm: BP: / Procedure Staff Learning Analyst: Marco Antonio Wang RDCS Reading Physician: Mary Barrett Requesting Provider: Hernandez Chan MANNIE Exam Details Conclusions: Normal global systolic LV function. Good color flow doppler in the left atrial appendage. No thrombus in left appendage. The interatrial septum was aneuysmal. An agitated saline study was performed and there is a small PFO.. Trivial to mild mitral regurgitation. Measurements: Chambers Valvular Assessment AV/MV Valvular Assessment TV/PV Normal Normal Normal Name Value Range Name Value Range Name Value Range Additional Measurements: Findings: Left Ventricle: Normal global systolic LV function. Left Atrial Appendage: Good color flow doppler in the left atrial appendage. No thrombus in left appendage. The interatrial septum was aneuysmal. An agitated saline study was performed and there is a small PFO.. Right Atrium: The right atrium is normal in size. Mitral Valve: Patient: CHACHO BOLES Study Date: 09/17/2017 Page 1 of 2 05:12 PM The mitral valve is normal in appearance. Trivial to mild mitral regurgitation. Aortic Valve: The aortic valve is tri-leaflet and functions normally. Tricuspid Valve: The tricuspid valve is normal in appearance and function. Pulmonic Valve: The pulmonic valve is normal in appearance and function. Aorta: The aorta is normal. Pericardium: No pericardial effusion. l1n (No Signature Object) Patient: CHACHO BOLES Study Date: 09/17/2017 Page 2 of 2 05:12 PM [id number]
[2017-09-18 11:46] VITALS: BP 145/75; PULSE 92; RESP 18; TEMP 98.7; O2SAT 89
--- NOTE | 2017-09-18 11:50 | PDCARPN ---
Cardiology Progress Note Assessment/Plan: Assessment/plan: 66 yo M with intermittent HTN, dyslipidemia, admitted with posterior circulation strokes likely embolic. Currently no clear etiology. No AF on tele. MANNIE with small PFO but other rsuh normal. Head and neck CT without atherosclerotic disease. 1. Stroke: residual mild visual field deficit. Started on plavix, statin. Will watch BP as outpt. May need antiHTN; consider beta gene as he admits some of his spikes in BP occur when anxious. Will arrange 30 day EVR and follow up with me at [facility] 2. HTN: allowing mild permissive HTN now. Follow closely 3. Dyslipidemia: primarily high TGs and low HDL. Dietary strategies reviewed. Statin for overall cardiovascular risk reduction 4. Hereditary spherocystosis: seen by Dr. Thomas. On folate, plavix. Stable for discharge from my standpoint. Follow up per #1 09/18/17 11:47 Subjective: Frank still has mild visual field issue--describes as floater. No CP, SOB, palpitaitons. Reviewed/Discussed With: hospitalist Objective: Vital Signs (8 Hrs) Temp Pulse Resp BP Pulse Ox 09/18/17 07:43 36.8 C 79 15 148/84 H 94 09/18/17 04:00 36.6 C 68 14 120/80 95 Intake/Output (24 Hrs) 09/17/17 09/18/17 09/19/17 05:59 05:59 05:59 Intake Total 290 200 Balance 290 200 Intake: Oral (ml) 290 200 Other: Weight 103.419 kg 103.419 kg Intake Quantity Yes Sufficient Number of Voids Toilet 2 NAD JVP <10 RRR no m/r/g Lungs CTA No edema Result Diagrams: 09/18/17 04:38 09/17/17 05:33 Cardiac Labs: Cardiac Lab Results (72 Hrs) 09/16/17 21:15 Troponin I < 0.012 Telemetry: NSR Echocardiogram: MANNIE performed by me: Small PFO. Otherwise normal ICD10 Worksheet Patient Problems: Problems Problem Status Onset H/O splenectomy Chronic Spherocytosis, hereditary Chronic CVA (cerebral vascular accident) Acute
--- NOTE | 2017-09-18 14:12 | SOAPPROG ---
SOAP Progress Note Assessment/Plan: E&M for hereditary spherocytosis * Hereditary spherocytosis s/p splenectomy: mild hemolysis but well compensated. Continue folic acid * elevated Hgb and WBC: Probably post-splenectomy but cannot r/o MPD. JAK2 pending. Will follow up in clinic * Recurrent strokes: possibly related to HS and post-splenectomy; on plavix Subjective: No acute complaints. Going home today. Objective: Vital Signs Temp Pulse Resp BP Pulse Ox 37.1 C 92 18 145/75 H 89 L 09/18/17 11:46 09/18/17 11:46 09/18/17 11:46 09/18/17 11:46 09/18/17 11:46 Laboratory Results 09/18/17 04:38 09/17/17 05:33 09/17/17 09/18/17 09/19/17 05:59 05:59 05:59 Intake Total 290 200 Balance 290 200 PT 13.9 SEC (12.0-15.0) 09/16/17 15:30 INR 1.05 (0.83-1.16) 09/16/17 15:30 Laboratory Tests 09/18/17 09/18/17 04:38 04:38 Hgb 17.1 Corrected Retic Count 5.1 H Total Bilirubin 1.6 H Unconjugated Bilirubin 1.2 H Lactate Dehydrogenase 416 Physical Exam - Physical Exam General Appearance: no apparent distress ICD10 Worksheet Patient Problems: Problems Problem Status Onset CVA (cerebral vascular accident) Acute H/O splenectomy Chronic Spherocytosis, hereditary Chronic
--- NOTE | 2017-09-18 15:03 | NEUROPROG ---
Assessment: 1. Multiple, small acute infarcts in the posterior circulation bilaterally, maximal left 2. Hereditary spherocytosis 3. 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 Surface echo was unremarkable. MANNIE - small PFO, n intracardiac thrombus. Patient declined LINQ and would like 30 day event monitor first. I encouraged him to get LINQ if 30 day monitor is negative to screen for PAF. I appreciate Cardiology help with this patient. I appreciate Heme/Onc input and reviewed their notes. He will have outpatient followup with Ophthalmology for a digital visual field examination, Dr. Resendiz (his primary neurologist) and cardiology. He will not drive until cleared Ophthalmology after digital visual field examination, he is agreeable. Ultimately, I have asked him to obtain his records from [place] to review with Dr. Resendiz as an outpatient once discharged. He is agreeable with the plan. He will d/c home today on Plavix, statin and f/u plan as above. 35 total minutes floor time; reviewing interim history, testing, direct counseling the patient and coordination of care. Subjective: No new sx's Objective: Vital Signs Temp Pulse Resp BP Pulse Ox 37.1 C 92 18 145/75 H 89 L 09/18/17 11:46 09/18/17 11:46 09/18/17 11:46 09/18/17 11:46 09/18/17 11:46 Laboratory Results 09/18/17 04:38 09/17/17 05:33 09/17/17 09/18/17 09/19/17 05:59 05:59 05:59 Intake Total 290 200 Balance 290 200 PT 13.9 SEC (12.0-15.0) 09/16/17 15:30 INR 1.05 (0.83-1.16) 09/16/17 15:30 a/a no aphasia subjective right visual field cut, small Allergies/Adverse Reactions: codeine [Codeine] Allergy (Unknown, Verified 10/28/16 16:34)
--- NOTE | 2017-09-18 19:21 | GDS ---
[f rep st] DISCHARGE SUMMARY DISCHARGE DIAGNOSES: 1. Acute posterior circulation strokes, suspicious for cardioembolic source. 2. Hereditary spherocytosis. 3. 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 4. Hyperlipidemia. CONSULTANTS: 1. Dr. Mary Barrett, cardiology. 2. Dr. Ela Ortega, oncology. 3. Dr. Hernandez Chan, neurology. HISTORY: For details, please see the history and physical dated September 16, 2017. In brief, Mr. Domingo jiménez is a 66-year-old male with a history of hypertension and migraines with scotoma aura, as well as prior cerebellar stroke in the setting of traumatic vertebral dissection, who presents to the emergen cy department with vision changes. Workup revealed multiple small strokes in his posterior circulati on. He was admitted to the hospital for further management. HOSPITAL COURSE: The patient was admitted to med/surg neuro unit. He underwent CTA head and neck, w hich showed no large vessel occlusions and normal vascular evaluation. However, an MRI of his brain showed new small acute infarcts in the left occipital lobe, posteromedial left temporal lobe, and rig ht cerebellum with underlying [id number] white matter change, as well as sequela from an old in farct with encephalization in the right cerebellum. Multifocal posterior circulation infarcts are mo st suspicious for cardioembolic source. He underwent both transthoracic and transesophageal echocard iogram, which was negative for thrombus. There was a small PFO noted on his MANNIE. He had been interm ittently taking aspirin prior to presentation. This was changed to Plavix given his acute stroke. H e was started on Lipitor. It is also noted he as a history of hereditary spherocytosis. Apparently there are some case reports of ischemic stroke in the setting of hereditary spherocytosis. Hematolog y consult was obtained, and anticoagulation was not recommended at this time. It is noted that patie nts who are status post splenectomy are at increased risk of clots. In addition, it is noted he pres ented with a mildly elevated hemoglobin and JAK2 mutation was sent and remains pending at the time of discharge. The patient continues to have very mild scotoma symptoms. 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 In addition, he did req uire some oxygen while sleeping, noting he had some desaturations into the high 80s. I recommend he have an outpatient sleep study to evaluate for sleep apnea. At this time, he does not meet criteria for home oxygen with his lowest sat of 89% on room air; although, he does agree to see his PCP to arr constanza for outpatient sleep study. DISPOSITION: Patient is discharged home in stable condition. FOLLOWUP: 1. Dr. Ambrocio Ojeda, primary care physician. 2. Dr. Yovani Resendiz, Neurology. 3. Dr. Mary Barrett, cardiology, to arrange for outpatient cardiac event monitor. 4. Dr. Ela Ortega to follow up on JAK2 mutation, which is currently pending. 5. Ophthalmology followup. DISCHARGE MEDICATIONS: Please see [facility] for completed outpatient medication list. New medication s on discharge include Plavix 75 mg p.o. daily (#30, no refills), atorvastatin 20 mg p.o. daily (#30, no refills), and folic acid 1 mg p.o. daily (#30, no refills). He will take all other outpatient me dications as previously prescribed. /[id number]/MODL
== END 2017-09-18 16:15 | disposition home or self-care (01) | DRG 66 ==
LOC: EEVIPCON 16:10 → OBSVTOIN 16:10 → F3N 16:27
PROVIDERS: ADMIT Hospitalist; ATTEND Hospitalist
PROC: B244ZZ4 Ultrasonography of Right Heart, Transesophageal (ICD-10-PCS; principal; 2017-09-17)
DX: I63.433 Cerebral infarction due to embolism of bilateral posterior cerebral arteries (principal); D58.0 Hereditary spherocytosis; E78.5 Hyperlipidemia, unspecified; G43.909 Migraine, unspecified, not intractable, without status migrainosus; Z86.73 Personal history of transient ischemic attack (TIA), and cerebral infarction without residual deficits
CPT/HCPCS: 81439-90; 97161-GP; 97165-GO; G8978-GP-CH; G8979-GP-CH; G8980-GP-CH; G8987-GO-CI; G8988-GO-CI; G8989-GO-CI; J1650; J2704; Q9967

== ENCOUNTER 2018-08-23 12:12 | Emergency (ER) | payer OTHER ==
[2018-08-23 12:37] VITALS: BP 156/98
--- NOTE | 2018-08-23 13:07 | EDPHY ---
H & P Stated Complaint: R knee pain after injury 3 weeks. 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 He states that 3 weeks ago he was sitting down into his desk when he hit his medial right knee hard on the corner of the desk. He had immediate pain. He had bruising. He did not think that it was broken and continue to work. He has noticed however that ever since he has had pain in that area. The bruising has resolved. He does not have difficulty ambulating or feel that his knee is unstable. He has normal flexion and extension and sensation and pulses. He however continues to have pain pinpoint to the distal medial femur prominence. No calf or thigh pain. No erythema. He states that his pain is minimal in the morning but worsens throughout the day. It does improve with Tylenol. Severity: Moderate Modifying factors: Above REVIEW OF SYSTEMS: Constitutional: denies: chills, fever, recent illness, recent injury EENTM: denies: blurred vision, double vision, nose congestion Respiratory: denies: cough, shortness of breath Cardiac: denies: chest pain, irregular heart rate, lightheadedness, palpitations Gastrointestinal/Abdominal: denies: abdominal pain, diarrhea, nausea, vomiting, blood streaked stools Genitourinary: denies: dysuria, frequency, hematuria, pain Musculoskeletal: See HPI Skin: denies: lesions, rash, jaundice, bruising Neurological: denies: headache, numbness, paresthesia, tingling, dizziness, weakness Hematologic/Lymphatic: denies: blood clots, easy bleeding, easy bruising Immunologic/allergic: denies: HIV/AIDS, transplant 10 systems reviewed and negative except as noted EXAM: GENERAL: Well-appearing, well-nourished and in no acute distress. HEAD: Atraumatic, normocephalic. EYES: Pupils equal round and reactive to light, extraocular movements intact, sclera anicteric, conjunctiva are normal. ENT: TMs normal, nares patent, oropharynx clear without exudates. Moist mucous membranes. NECK: Normal range of motion, supple without lymphadenopathy or JVD. LUNGS: Breath sounds clear to auscultation bilaterally and equal. No wheezes rales or rhonchi. HEART: Regular rate and rhythm without murmurs, rubs or gallops. ABDOMEN: Soft, nontender, normoactive bowel sounds. No guarding, no rebound. No masses appreciated. BACK: No CVA tenderness, no spinal tenderness, step-offs or deformities EXTREMITIES: Pinpoint tenderness to medial epicondyle of his right femur. No surrounding tenderness. No obvious swelling or deformity. No erythema. No warmth. No abrasion or laceration and contusion normal pulses and sensation distally. Able to ambulate without difficulty. Able to squat without difficulty. NEUROLOGICAL: Cranial nerves II through XII grossly intact. Normal speech, normal gait. 5/5 strength, normal movement in all extremities, normal sensation , normal reflexes PSYCH: Normal mood, normal affect. SKIN: Warm, dry, normal turgor, no visible rashes or lesions. Source: Patient Exam Limitations: No limitations - Personal History Current Tetanus/Diphtheria Vaccine: Unsure Current Tetanus Diphtheria and Acellular Pertussis (TDAP): Unsure - Medical/Surgical History Hx Asthma: No Hx Chronic Respiratory Disease: No Hx Diabetes: No Hx Cardiac Disease: No Hx Renal Disease: No Hx Cirrhosis: No Hx Alcoholism: No Hx HIV/AIDS: No Hx Splenectomy or Spleen Trauma: Yes Other PMH: appy, splenectomy, tonsilectomy. cerebellar stroke. - Family History Significant Family History: No pertinent family hx - Social History Smoking Status: Never smoked Alcohol Use: None Constitutional: Initial Vital Signs Temperature (C) 36.9 C 08/23/18 12:33 Heart Rate 88 08/23/18 12:33 Respiratory Rate 16 08/23/18 12:33 Blood Pressure 156/98 H 08/23/18 12:33 O2 Sat (%) 93 08/23/18 12:33 O2 Delivery Mode Room Air Allergies/Adverse Reactions: codeine [Codeine] Allergy (Severe, Verified 08/23/18 12:37) Anaphylaxis Home Medications: Medication Instructions Recorded Acetaminophen [Tylenol 325mg (*)] 650 mg PO Q4HRS PRN tab 09/18/17 Folic Acid [Folic Acid 1 MG (*)] 1 mg PO DAILY #30 tab 09/18/17 celeCOXIB [Celebrex (*)] 200 mg PO BID #60 cap 08/23/18 Medical Decision Making - Diagnostics Imaging Results: Imaging Impressions Knee X-Ray 08/23/18 13:04 Impression: Negative for fracture. If symptoms persist, MRI could be considered for further evaluation. Imaging: Discussed imaging studies w/ fluid dynamicist Radiologist ED Course/Re-evaluation: The patient does have a small periosteal reaction in exactly the place where he has pinpoint tenderness. I suspect that he may have had a small chip fracture from the trauma that is now healing. It does not appear infected. He has ligament stability. No vascular abnormalities. He is requesting Celebrex. I will also refer him to Orthopedics if his symptoms are not improving. Differential Diagnosis: Partial list of the Differential diagnosis considered include but were not limited to; contusion, stress fracture, chip fracture, ligamentous injury and although unlikely based on the history and physical exam, I also considered meniscal injury, dislocation, tibial plateau fracture, patellar fracture. Departure - Departure Disposition: Home, Routine, Self-Care Clinical Impression: Knee pain, right Qualifiers: Chronicity: unspecified Qualified Code(s): M25.561 - Pain in right knee Condition: Fair Instructions: Knee Pain (ED) Referrals: Davina Horner MD [Primary Care Provider] - As per Instructions Corky Mcgowan MD [Medical Doctor] - 5-7 days, if not improved Prescriptions: celeCOXIB [Celebrex (*)] 200 mg PO BID #60 cap
== END 2018-08-23 13:38 | disposition home or self-care (01) ==
DX: M25.561 Pain in right knee (principal); W22.8XXA Striking against or struck by other objects, initial encounter; Y99.0 Civilian activity done for income or pay

== ENCOUNTER → 2018-08-29 | Outpatient (CLI) | payer OTHER | LOC: FIMAGING 16:25 | PROVIDERS: ATTEND Orthopaedic Surgery | DX: S83.241A Other tear of medial meniscus, current injury, right knee, initial encounter (principal); S83.411A Sprain of medial collateral ligament of right knee, initial encounter; M67.863 Other specified disorders of tendon, right knee; X58.XXXA Exposure to other specified factors, initial encounter ==

== ENCOUNTER 2019-01-26 06:55 | Emergency (ER) | payer OTHER | END 2019-01-26 08:18 | disposition home or self-care (01) ==